=== PATIENT | female | born 1980 | race American Indian/Alaskan Native ===

== ENCOUNTER 2019-02-10 13:14 | Emergency (ER) | payer OTHER ==
[2019-02-10 13:27] VITALS: BP 149/91
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
== END 2019-02-10 16:25 | disposition home or self-care (01) ==
LOC: ED 13:14
DX: S20.219A Contusion of unspecified front wall of thorax, initial encounter (principal); Y04.8XXA Assault by other bodily force, initial encounter; Y93.89 Activity, other specified; Y92.254 Theater (live) as the place of occurrence of the external cause; Y99.8 Other external cause status
CPT/HCPCS: 71046; 99283